=== PATIENT | female | born 1985 | race Caucasian/White ===

== ENCOUNTER 2018-05-09 22:44 | Emergency (ER) | payer BC, OTHER ==
[2018-05-10 00:17] LABS: ADD MAN DIFF? NO
[2018-05-10 00:19] LABS: BASOPHILS % 0.5 % (0.0-2.0); EOSINOPHILS # 0.1 10^3/ul (0.0-0.5); EOSINOPHILS % 1.1 % (0.0-7.0); HEMATOCRIT 31.8 % (37.0-47.0); HEMOGLOBIN 9.7 g/dl (12.0-16.0); LYMPHOCYTES # 1.5 10^3/ul (0.8-2.9); LYMPHOCYTES % 33.7 % (15.0-51.0); MEAN CORPUSCULAR HGB CONC 30.5 g/dl (32.0-37.0); MEAN PLATELET VOLUME 9.5 fl (7.4-10.4); MONOCYTE # 0.6 10^3/ul (0.3-0.9); MONOCYTES % 12.9 % (0.0-11.0); NEUTROPHIL # 2.3 10^3/ul (1.6-7.5); NEUTROPHILS % 51.6 % (39.0-77.0); PLATELET COUNT 256 10^3/UL (140-415); RED BLOOD COUNT 3.88 10^6/ul (4.20-5.40); RED CELL DISTRIBUTION WIDTH 15.2 % (11.5-14.5)
[2018-05-10 00:19] LABS: WHITE BLOOD COUNT 4.4 10^3/ul (4.8-10.8)
[2018-05-10] MEDS ORDERED: hydrALAzine 20 MG INJ IV (00:30)
[2018-05-10] MEDS: ONDANSETRON 4 MG INJ IV (00:30)
[2018-05-10] MEDS: HYDROmorphONE 0.5 MG/0.5 ML SYG IV ×2 (00:30→01:12)
[2018-05-10 00:36] LABS: ALANINE AMINOTRANSFERASE 25 IU/L (13-69); ALBUMIN 4.4 g/dl (3.3-4.9); ALBUMIN/GLOBULIN RATIO 1.41; ALKALINE PHOSPHATASE 48 IU/L (42-121); ANION GAP 11 (5-13); ASPARTATE AMINO TRANSFERASE 17 IU/L (15-46); BILIRUBIN,INDIRECT 0.1 mg/dl (0-1.1); BILIRUBIN,TOTAL 0.1 mg/dl (0.2-1.3); BLOOD UREA NITROGEN 18 mg/dl (7-20); CALCIUM 9.5 mg/dl (8.4-10.2); CARBON DIOXIDE 26 mmol/L (21-31); CHLORIDE 103 mmol/L (97-110); CREATININE 0.92 mg/dl (0.44-1.00); Estimated GFR > 60 mL/min (>60); GLUCOSE 104 mg/dl (70-220); SODIUM 140 mmol/L (135-144); TOTAL PROTEIN 7.5 g/dl (6.1-8.1)
[2018-05-10 00:48] LABS: B-TYPE NATRIURETIC PEPTIDE 48 PG/ML (0-125); TROPONIN-I < 0.012 ng/ml (0.000-0.120)
[2018-05-10] MEDS ORDERED: FUROSEMIDE 40 MG INJ (01:09)
[2018-05-10] MEDS: FUROSEMIDE 40 MG INJ IV (01:12)
[2018-05-10] MEDS: METOCLOPRAMIDE 10 MG INJ IV (01:12)
[2018-05-10] MEDS: HYDROmorphONE 2 MG/ML SYG IV (03:45)
[2018-05-10] MEDS: ALPRAZOLAM 0.25 MG TAB PO (06:10)
[2018-05-10 06:13] LABS: CREATINE KINASE 46 IU/L (23-200)
[2018-05-10 06:18] LABS: CK INDEX 0.5; CK-MB < 0.22 ng/ml (0.0-2.4); TROPONIN-I < 0.012 ng/ml (0.000-0.120)
== END 2018-05-10 06:24 | disposition home or self-care (01) ==
LOC: E/R 05-10 06:24
DX: I13.0 Hypertensive heart and chronic kidney disease with heart failure and stage 1 through stage 4 chronic kidney disease, or unspecified chronic kidney disease (principal); I50.9 Heart failure, unspecified; N18.4 Chronic kidney disease, stage 4 (severe)
CPT/HCPCS: 36415; 71045; 80053; 82550; 82553; 83880; 84484; 85025; 93005; 96374; 96375; 96376; 99285-25